=== PATIENT | female | born 1975 | race Two or more races ===

== ENCOUNTER → 2017-10-05 08:59 | Outpatient (CLI) | payer OTHER ==
[~2017-10-05] VITALS: Ht 152.4 cm; Wt 84.4 kg
[~2017-10-05 08:59] MED LIST: AMOX1TAB5 PO; CLARITIN10 M1 PO; FLONASE16 GM NS; GUMSOL SPRAY30 ML MM; SEPTRA DS TABLE1 TAB PO; ZITHROMAX200 MG PO
== END | disposition home or self-care (01) ==
LOC: PPHC 08:59
DX: M54.89 Other dorsalgia (principal)

== ENCOUNTER 2017-12-02 10:27 | Outpatient (CLI) | payer OTHER | END 2017-12-02 16:14 | disposition home or self-care (01) | LOC: MRI 10:27 | DX: M51.86 Other intervertebral disc disorders, lumbar region (principal) | CPT/HCPCS: 72148 ==

== ENCOUNTER 2018-07-01 10:39 | Emergency (ER) | payer OTHER ==
[~2018-07-01] VITALS: Ht 170.2 cm; Wt 85.7 kg
[2018-07-01] MEDS ORDERED: ROBAXIN500 MG PO (11:06)
== END 2018-07-01 18:35 | disposition home or self-care (01) ==
LOC: ER 10:39
DX: D25.9 Leiomyoma of uterus, unspecified (principal); N39.0 Urinary tract infection, site not specified

== ENCOUNTER 2018-07-22 07:58 | Outpatient (CLI) | payer OTHER ==
[~2018-07-22 07:58] MED LIST changes: +ROBAXIN500 MG PO
== END 2018-07-22 08:12 | disposition home or self-care (01) ==
LOC: SONOGRAMA 07:58 → MAMO-SONO 09:15
DX: D25.1 Intramural leiomyoma of uterus (principal); R10.2 Pelvic and perineal pain

== ENCOUNTER 2018-08-03 13:33 | Outpatient (CLI) | payer OTHER | END 2018-08-03 15:16 | disposition home or self-care (01) | LOC: MRI 13:33 | DX: R10.2 Pelvic and perineal pain (principal); D25.9 Leiomyoma of uterus, unspecified | CPT/HCPCS: 72197 ==

== ENCOUNTER 2018-08-15 07:53 | Outpatient (CLI) | payer OTHER | END 2018-08-15 07:58 | disposition home or self-care (01) | LOC: SONOGRAMA 07:53 → MAMO-SONO 08-20 08:15 | DX: N13.39 Other hydronephrosis (principal) ==

== ENCOUNTER 2018-10-29 08:37 | Outpatient (CLI) | payer OTHER | END 2018-10-29 08:39 | disposition home or self-care (01) | LOC: RAD 08:37 | DX: J06.9 Acute upper respiratory infection, unspecified (principal) ==

== ENCOUNTER → 2019-05-04 | Outpatient (CLI) | payer OTHER ==
[~2019-05-04] MED LIST changes: +ZYRTEC10 M3 PO
== END | disposition home or self-care (01) ==
LOC: RAD 15:40
DX: D25.9 Leiomyoma of uterus, unspecified (principal); D64.89 Other specified anemias; N39.0 Urinary tract infection, site not specified; Z01.818 Encounter for other preprocedural examination; R79.89 Other specified abnormal findings of blood chemistry

== ENCOUNTER 2019-05-11 07:00 | Inpatient (IN) | payer OTHER ==
[~2019-05-11] VITALS: Ht 170.2 cm; Wt 85.7 kg
[~2019-05-11 07:00] MED LIST changes: -ZYRTEC10 M3 PO
[2019-05-11] MEDS ORDERED: ZYRTEC10 M3 PO (07:50)
== END 2019-05-20 13:34 | disposition home or self-care (01) | DRG 743 ==
LOC: EDSTATUS 07:00 → ADM 07:00 → OB/GYN 05-18 05:20 → O/R 05-18 05:20 → SURH 05-18 07:00 → OB/GYN 05-18 13:15
PROVIDERS: ADMIT Obstetrics & Gynecology Gynecologic Oncology
PROC: 0UT00ZZ Resection of Right Ovary, Open Approach (ICD-10-PCS; 2019-05-18)
PROC: 0UT70ZZ Resection of Bilateral Fallopian Tubes, Open Approach (ICD-10-PCS; 2019-05-18)
PROC: 0UT90ZZ Resection of Uterus, Open Approach (ICD-10-PCS; principal; 2019-05-18 07:00)
DX: D25.1 Intramural leiomyoma of uterus (principal); N72 Inflammatory disease of cervix uteri; N83.11 Corpus luteum cyst of right ovary; N83.8 Other noninflammatory disorders of ovary, fallopian tube and broad ligament; R59.0 Localized enlarged lymph nodes

== ENCOUNTER 2020-11-06 11:33 | Outpatient (CLI) | payer OTHER ==
[~2020-11-06 11:33] MED LIST changes: +ZYRTEC10 M3 PO
== END 2020-11-11 10:28 | disposition home or self-care (01) ==
LOC: OFIC 805 11:33
PROVIDERS: ATTEND Otolaryngology
DX: J30.89 Other allergic rhinitis (principal); H61.23 Impacted cerumen, bilateral

== ENCOUNTER 2020-12-24 14:32 | Outpatient (CLI) | payer OTHER | END 2020-12-24 16:42 | disposition home or self-care (01) | LOC: OFIC 805 14:32 | PROVIDERS: ATTEND Otolaryngology Otology & Neurotology | DX: J30.89 Other allergic rhinitis (principal); H61.23 Impacted cerumen, bilateral ==

== ENCOUNTER 2020-12-31 08:14 | Outpatient (CLI) | payer OTHER | END 2020-12-31 08:20 | disposition home or self-care (01) | LOC: MAMO-SONO 08:14 | PROVIDERS: ATTEND Internal Medicine | DX: Z12.39 Encounter for other screening for malignant neoplasm of breast (principal); N63.10 Unspecified lump in the right breast, unspecified quadrant ==

== ENCOUNTER 2021-01-15 12:22 | Outpatient (CLI) | payer OTHER | END 2021-01-15 14:02 | disposition home or self-care (01) | LOC: OFIC 805 12:22 | PROVIDERS: ATTEND Otolaryngology Otology & Neurotology | DX: J30.89 Other allergic rhinitis (principal); R42 Dizziness and giddiness; H61.23 Impacted cerumen, bilateral ==

== ENCOUNTER 2022-01-13 10:56 | Outpatient (CLI) | payer OTHER | END 2022-01-13 11:10 | disposition home or self-care (01) | LOC: MAMO-SONO 10:56 | PROVIDERS: ATTEND Internal Medicine | DX: N63 Unspecified lump in breast (principal); Z12.31 Encounter for screening mammogram for malignant neoplasm of breast ==

== ENCOUNTER 2022-08-18 13:41 | Emergency (ER) | payer OTHER ==
[~2022-08-18] VITALS: Ht 170.2 cm; Wt 90.7 kg
[2022-08-18] MEDS ORDERED: FOSAMAX70 MG PO (14:28)
== END 2022-08-18 20:58 | disposition home or self-care (01) ==
LOC: ER 13:41
DX: N39.0 Urinary tract infection, site not specified (principal)

== ENCOUNTER 2023-04-05 13:19 | Outpatient (CLI) | payer OTHER ==
[~2023-04-05 13:19] MED LIST changes: +FOSAMAX70 MG PO
== END 2023-04-05 13:29 | disposition home or self-care (01) ==
LOC: MAMO-SONO 13:19
PROVIDERS: ATTEND Internal Medicine
DX: Z12.31 Encounter for screening mammogram for malignant neoplasm of breast (principal); Z12.39 Encounter for other screening for malignant neoplasm of breast; N63.0 Unspecified lump in unspecified breast

== ENCOUNTER 2023-05-14 07:58 | Outpatient (CLI) | payer OTHER | END 2023-05-14 08:08 | disposition home or self-care (01) | LOC: SONOGRAMA 07:58 | DX: R14.0 Abdominal distension (gaseous) (principal); R10.9 Unspecified abdominal pain; K29.70 Gastritis, unspecified, without bleeding; K21.9 Gastro-esophageal reflux disease without esophagitis; R94.5 Abnormal results of liver function studies; R73.01 Impaired fasting glucose ==

== ENCOUNTER 2024-04-10 09:46 | Outpatient (CLI) | payer OTHER | END 2024-04-10 09:56 | disposition home or self-care (01) | LOC: MAMO-SONO 09:46 | PROVIDERS: ATTEND Obstetrics & Gynecology | DX: N60.11 Diffuse cystic mastopathy of right breast (principal); Z12.31 Encounter for screening mammogram for malignant neoplasm of breast ==